=== PATIENT | male | born 1940 | race Caucasian/White ===

== ENCOUNTER 2016-03-15 08:39 | Day surgery (SDC) | payer MEDICARE ==
[~2016-03-15 08:39] MED LIST: ASPI-973 PO; Ampicillin 2,000 mg/50 mL NS Minibag Plus IV ONE; CRES20T PO; DOK; Gentamicin Inj 140 MG in Dextrose 5% 100 ML IV ONE; HYDR-3740 PO; Lactated Ringer's 1,000 ML IV SCH; METO50TA3 PO; NAPR220C11 PO; OXYB5TAB10 PO; TAMS0.4C29 PO
[2016-03-15] MEDS ORDERED: Ondansetron 2 mg/mL 2 mL Inj ONE (08:40)
[2016-03-15] MEDS ORDERED: Propofol 10,000 mCg/mL 20 mL Inj ONE (08:40)
[2016-03-15] MEDS ORDERED: fentaNYL-PF 50 mCg/mL 2 mL Inj ONE (08:40)
[2016-03-15 09:45] VITALS: BP 117/86; PULSE 69; RESP 16; O2SAT 97
[2016-03-15] MEDS: Lactated Ringer's 1,000 ML IV SCH ×2 (09:59→11:08)
[2016-03-15] MEDS ORDERED: Lactated Ringer's 1,000 ML IV SCH (11:29)
[2016-03-15] MEDS ORDERED: Lactated Ringer's 500 ML IV PRN (11:29)
--- NOTE | 2016-03-15 11:29 | PCM.HPANE ---
Patient Data Surgeon Admitting Provider: Attending Provider:Seferino Jay MD Primary Care Physician:Arden Silveira MD Other Provider:Alejandro Broussard Anesthesia Reason for Visit Right Kidney Stone Ht/WT & BMI Body Mass Index Allergies Coded Allergies: iodine (Verified Allergy, Unknown, 03/12/16) lisinopril (Verified Allergy, Unknown, QUESTIONABLE RASH, 08/18/15) morphine (Verified Allergy, Unknown, oral tablets to be coated in applesauce -otherwise vomits, 03/12/16) Uncoded Allergies: BLOOD TRANSFUSION (Allergy, Unknown, QUESTIONABLE RASH, 08/18/15) Past Anesthesia History Anesthesia History: Denies:: Abnormal Airway, Anesthesia Reactions, Difficult Intubation, Fam Anesthesia Reaction Diabetes History Hx Diabetes?: No MRSA MRSA: No Medications Blood Thinner: Aspirin Hypertension Medication: Yes Home Meds Incl Beta Rachele: Yes Reported Medications Tamsulosin ER 0.4 Mg Cap.er.24h0.4 Mg PO DAILY Ref 0 03/12/16 Oxybutynin Chloride 5 Mg Tablet5 Mg PO TID Ref 0 03/12/16 Metoprolol Tartrate 50 Mg [id number] Mg PO BID 30 Days Ref 0 03/12/16 Hydrocodone-Acetaminophen 10-325 mg 1 Each Tablet1 Tablet PO q4-6h PRN For Pain Ref 0 03/12/16 Aspirin 81 Mg [id number] Mg PO DAILY Ref 0 03/12/16 Naproxen Sodium (Aleve)220 Mg Hevyogz303 Mg PO PRN For Pain 03/12/16 [Dok] No Conflict [id number] Mg TID 03/12/16 Rosuvastatin Calcium (Crestor)20 Mg Vnwubu81 Mg PO DAILY 30 Days Ref 0 03/12/16 Discontinued Reported Medications Tamsulosin ER 0.4 Mg Cap.er.24h0.4 Mg PO HS Ref 0 08/17/15 Metoprolol Tartrate 50 Mg Rtoxok29 Mg PO BIDWM 30 Days Ref 0 08/17/15 Rosuvastatin Calcium (Crestor)20 Mg Caqtgb76 Mg PO DAILY 30 Days Ref 0 08/17/15 Aspirin 81 Mg Iwozbn02 Mg PO HS Ref 0 08/17/15 Naproxen Sodium (Aleve)220 Mg Spxgzhz783 Mg PO DAILYWM 08/17/15 History History of ENT Problems?: No HEENT History: Positive for:: Hearing Problem Denies:: Abnormal Airway Cataracts Difficult Intubation Dysphagia Glaucoma Sinus Problem TMJ Hx of Heart Problems?: Yes Cardiovascular History: Positive for:: Cardiac 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) Hypertension Denies:: AICD Chest Pain Congestive Heart Failure Edema Heart Murmur Irregular Heartbeat Pacemaker Hx of Respiratory Problem?: No Respiratory History: Positive for:: Chest Surgery (CABG) Denies:: Asthma Dyspnea Oxygen Administration Pneumonia Tuberculosis Use of C-PAP Machine Use of Inhalers / NEBS Hx Neurologic Problems?: No Neurological History: Denies:: CVA Dizziness Headaches Multiple Sclerosis Parkinson's Disease Seizures TIA Hx of GI Problems?: No Gastrointestinal History: Denies:: Gall Bladder Disease Gastroesphageal Reflux Gastrointestinal Bleeding Heartburn Hepatitis Hiatal Hernia Liver Disease Rectal Bleeding Hx of Problems?: Yes Genitourinary History: Positive for:: Kidney Stones (right kidney stone current admission problem) Other Pertinent History: pt had unsuccessful surgery for this 03/09 at [facility] Male Hx: Denies:: Prostate Problems Scrotal Mass Testicular Surgery Skin History: Denies:: History Skin Disorders? Pressure Ulcers Hx Musculoskeletal Problems?: Yes Musculoskeletal History: Positive for:: Back Injury ("BROKEN BACK" 1974) Joint Replacement (PARTIAL R HIP) Musculoskeletal Trauma (past hx of broken legs- still numbness and tingling ) Hx of Psycho/Social Problems?: No Psycho Social History: Denies:: Anxiety Hx Depression Hx Surgeries?: Yes (CABG; 14 LEG SURGERIES) Hx Any Other Health Problems?: Yes Other History: Positive for:: Hospitalization Denies:: Cancer Thyroid Disease History Blood Transfusions: Positive for:: Accept Blood Products? Blood Transfuse Reaction (broke out in rash) Blood Transfusions Hx Diabetes: No Hx Alcohol Use: NoHx Substance Use: No Smoking Status: Never Smoker Have You Smoked inLast 12 mo: No Stop/Bang Risk Assessment Category Category 1A: Patient has history of documented sleep apnea, and HAS NOT received any narcotic, sedative or anesthesia administration during this stay. Category 1B: Patient has history of documented sleep apnea, and HAS received any narcotic , sedative or anesthesia administration during this stay Category 2: Patient has SUSPECTED Obstructive Sleep Apnea, and HAS received any narcotic , sedative or anesthesia administration during this stay. Category 3: Patient has SUSPECTED Obstructive Sleep Apnea and HAS NOT received narcotic, sedative or anesthesia administration during this stay. Category 4: Outpatient in Procedural Areas with known sleep apnea or who screen positive for High Risk via the STOP/BANG questionnaire. Exam Exam General Appearance: Alert, Oriented X3, Cooperative, No Acute Distress HEENT/AIRWAY: MP 2 Lungs: Clear to Auscultation Heart: Exam Unremarkable Plan Impression Patient chart reviewed, patient interviewed and anesthestic plan with risks, benefits, and alternatives discussed, and informed consent obtained. ASA Physical Status: ASA2 Mod Systemic Disease Anesthetic Plan: GA Bene/Risks/Altern/Consents: Yes HP Complete Prior to Induction: Yes Tre Wagner MD Mar 15, 2016 07:54
[2016-03-15] MEDS ORDERED: Phenylephrine 10,000 mCg/mL Inj IVPUSH PRN (11:30)
[2016-03-15] MEDS ORDERED: Dexamethasone 4 mg/mL Inj IVPUSH PRN (11:30)
[2016-03-15] MEDS ORDERED: HYDROmorphone 1 mg/mL Inj IVPUSH PRN (11:30)
[2016-03-15] MEDS ORDERED: MetoCLOpramide 5 mg/mL 2 mL Inj IVPUSH PRN (11:30)
[2016-03-15] MEDS ORDERED: fentaNYL-PF 50 mCg/mL 2 mL Inj IVPUSH PRN (11:30)
[2016-03-15] MEDS ORDERED: EPHEDrine Sulfate 50 mg/mL Inj IVPUSH PRN (11:30)
[2016-03-15] MEDS ORDERED: Ondansetron 2 mg/mL 2 mL Inj IVPUSH PRN (11:30)
[2016-03-15] MEDS ORDERED: Iopamidol-300 50 mL Inj IV ONE (11:40)
[2016-03-15] MEDS ORDERED: Belladonna Alk-Opium 60 mg Rectal Suppository RECTAL ONE ×2 (11:59→12:03)
[2016-03-15 12:27] VITALS: BP 139/67; PULSE 60; RESP 15; O2SAT 97
[2016-03-15 12:35] VITALS: BP 123/62; PULSE 55; RESP 12; O2SAT 95
[2016-03-15 12:45] VITALS: BP 136/74; PULSE 52; RESP 16; O2SAT 98
--- NOTE | 2016-03-15 12:51 | PCM.SURGPO ---
Immediate Operative Note Date of Surgery: Mar 15, 2016 Pre Operative Diagnosis R renal calculus Post Operative Diagnosis R renal calculus Procedure Cystoscopy, R ureteroscopy, basket extraction of calculus, and R ureteral stent change Surgeon and Contract Administration Specialist Surgeon: Seferino Jay MD Assistants: None Findings R semi-rigid ureteroscopy revealed no calculi in R distal or R mid ureter. A 12 /14F x 35cm ureteral access sheath was placed in R ureter. R flexible ureteroscopy revealed no calculi in R proximal ureter and an approx. 3mm R lower pole renal calculus. Basket extraction of calculus was performed. R ureteral stent was changed. Complications There were no periprocedural complications identified. Surgical Specimen Removed: Yes Specimen sent to Pathology: No Surgical Specimen description: R renal calculus sent to lab for stone analysis Anesthetic Administered: GA Grafts, Implants: Other (26cm x 5F R ureteral JJ stent (no string)) Output, Estimated Blood Loss: <5 Blood Admin during surgery: No Additional information Patient to return to see me in 4-5 days for cystoscopy, stent removal, and post- op visit, with a KUB prior to appt. Seferino Jay MD Mar 15, 2016 12:51
[2016-03-15 12:57] VITALS: BP 134/59; PULSE 51; RESP 16; O2SAT 98
--- NOTE | 2016-03-15 12:58 | PCM.ANEP2 ---
Post Anesthesia Evaluation ASA/CMS Post Anesthesia VS in Patient's Normal Range?: Yes Resp Stable; Airway Patent?: Yes CV Function & Hydration Stable: Yes Mental Status Recovered?: Yes Pain control Satisfactory?: Yes N/V Control Satisfactory?: Yes Tre Wagner MD Mar 15, 2016 12:58
--- NOTE | 2016-03-15 12:58 | PCM.ANEP1 ---
Post Anesthesia Phase 1 PACU Phase 1 Assessment Date of Service: Mar 15, 2016 Vital Signs Vital Signs Date Time Temp Pulse Resp B/P Pulse Ox O2 Delivery O2 Flow Rate FiO2 03/15/16 12:45 52 16 136/74 98 Room Air 03/15/16 12:35 55 12 123/62 95 Room Air 03/15/16 12:27 36.3 60 15 139/67 97 Room Air 03/15/16 09:45 36.4 69 16 117/86 97 Room Air Anesthetic Administered: GA Level of Alertness: Awake, talking HERNDON's with Equal Strength: Yes Pain: No Nausea or Vomiting: No Oxygen Delivery: Room Air Lungs: Clear to Auscultation Dermatome Level: Full Sensation Tre Wagner MD Mar 15, 2016 12:58
--- NOTE | 2016-03-15 13:01 | PCM.DISURG ---
Surgical Discharge Instruction Date of Service Mar 15, 2016 Dates of Hospitalization Date of Hospital Admission Mar 15, 2016 Providers Admitting Physician: Seferino Jay MD Primary Care Physician: Arden Silveira MD Attending Physician: Seferino Jay MD Discharge Diagnosis Discharge Diagnosis R renal calculus Post Operative diagnosis R renal calculus Diet Discharge Diet: No restrictions, Other (Drink 10-12 8oz. glasses (3 liters) of fluids per day) Activity Discharge Activity-General: No restrictions, No driving while taking narcotic Dressing and Incisional Care Hygiene: May shower Follow Up Plan Follow-up Provider (F9): Seferino Jay MD Follow-up appointment: Days (4-5 days for cystoscopy, stent removal, and post- op visit, with a KUB prior to appt.) Call your provider for: Fever, Chills, Vomiting, Other (Pain uncontrolled by pain medications) Seferino Jay MD Mar 15, 2016 13:01
[2016-03-15 13:02] VITALS: BP 120/62; PULSE 51; RESP 16; O2SAT 100
--- NOTE | 2016-03-15 14:28 | DRSVH ---
PROCEDURE: X-RAY RETROGRADE UROGRAPHY INDICATIONS: RIGHT STENT PLACEMENT TECHNIQUE: 4 intra-operative images acquired by the Urology service. COMPARISON: Outside Film, CT, CT ABD PELVIS WO CON, 01/14/2016, 8:58. FINDINGS: Mild right hydronephrosis is present. No intraluminal filling defects seen. Visualized p ortions of the proximal ureter are grossly normal. Ureteral stent placed. IMPRESSION: Mild right hydronephrosis and placement of ureteral stent. Dictated by: Darin Sigala [facility] Interpreted: Minal Gustafson MD on 03/15/2016 at 14:26 Transcribed by: [place] on 03/15/2016 at 14:27 Approved by: Minal Gustafson MD, PhD on 03/15/2016 at 16:32
--- NOTE | 2016-03-15 20:16 | OP ---
[address] [address] OPERATIVE REPORT PATIENT: CRISTIAN BELTRAN : 1940 MR#: [id number] ADMIT: 03/15/2016 JOB ID: [id number] DATE OF SURGERY: 03/15/2016 PREOPERATIVE DIAGNOSIS(ES): Right renal calculus. POSTOPERATIVE DIAGNOSIS(ES): Right renal calculus. PROCEDURE: Cystoscopy, right ureteroscopy, basket extraction of calculus, and right ureteral stent change. SURGEON: Seferino Jay MD. ENERGY RATER: None. ANESTHESIA: General. ESTIMATED BLOOD LOSS: Less than 5 mL. SPECIMENS: Right renal calculus, sent to the lab for stone analysis. DRAINS: A 26 cm x 5-Cambodian right ureteral double-J stent. COMPLICATIONS: None. CONDITION: Stable. FINDINGS: Right semi-rigid ureteroscopy revealed no calculi in the right distal or right mid ureter. A 12/14-Cambodian by 35 cm ureteral access sheath was placed in the right ureter. Right flexible ureteroscopy revealed no calculi in the right proximal ureter and an approximately 3 mm right lower pole renal calculus. Basket extraction of calculus was performed. Right ureteral stent was changed. INDICATIONS: The patient is a 75-year-old male with a right lower pole renal calculus seen on CT scan. The patient is status post cystoscopy, right ureteroscopy, and right ureteral stent placement on March 09, 2016 for right renal calculus and gross hematuria, with intraoperative findings of cystoscopy showing trilobar prostatic hypertrophy with prostatic varices with bleeding seen after passage of the cystoscope in the bladder, moderately trabeculated bladder and no bladder tumors, lesions, or calculi, with right flexible ureteroscopy showing a 3 mm right lower pole renal calculus which was difficult to visualize and unable to be extracted using a basket (secondary to location of calculus within a right lower pole calyx with acute angle and inadequate deflection of the flexible ureteroscope). This surgery was done at [facility]. The patient now presents for surgery, specifically cystoscopy, right ureteroscopy, possible basket extraction of calculus, possible holmium laser lithotripsy, and right ureteral stent change. Will perform surgery using a flexible ureteroscope with thinner diameter and better deflection. DESCRIPTION OF PROCEDURE: The patient was brought into the operating room and placed supine on the operating room table. The patient was given ampicillin and gentamicin IV antibiotics. Sequential compression device boots were placed. General anesthesia was administered. The patient was brought down into dorsal lithotomy position. The patient was prepped and draped in standard surgical fashion. A 22-Cambodian rigid cystoscope was placed into the distal urethra without difficulty. Cystoscopy revealed normal distal urethra, trilobar prostatic hypertrophy with prostatic varices, moderately trabeculated bladder, and no bladder tumors, lesions, or calculi. The distal end of the right ureteral stent was seen emerging from the right ureteral orifice. The distal end of the stent was grasped with a cystoscopic grasper and brought out to the urethral meatus. A straight tip Ultratrack guidewire was passed through the stent, up the right ureter, into the right renal pelvis. The old stent was removed and discarded in its entirety. The guidewire was secured to the drape with a Alise clamp as a safety wire. A semi-rigid ureteroscope was passed through the urethra and bladder, and into the right ureteral orifice with the assistance of a PTFE guidewire. Right semi-rigid ureteroscopy revealed no calculi in the right distal or right mid ureter. The PTFE guidewire was advanced up the right ureter into the right renal pelvis. The semi-rigid ureteroscope was then removed from the patient. A 12/14-Cambodian x 35 cm ureteral access sheath was passed over the PTFE guidewire, through the urethra and bladder, up the right ureter, into the right mid ureter. The inner portion of the sheath and PTFE guidewire were removed. A flexible ureteroscope, which was a Flex-X Storz flexible ureteroscope, was passed through the ureteral access sheath into the right mid ureter. Right flexible ureteroscopy revealed no calculi in the right proximal ureter. Then, the right renal pelvis and all calyces were visualized. An approximately 3 mm calculus was seen in a right lower pole calyx. The calculus was able to be extracted using a 2.4-Cambodian N-[place] nitinol basket and the calculus was sent to the lab for stone analysis. The right renal pelvis and all calyces were visualized. No significant 1 mm or larger calculi were seen. A small amount of contrast was instilled into the right renal collecting system to illuminate the right renal collecting system to aid in stent placement. The flexible ureteroscope and ureteral access sheath were backed down the right ureter. The entire right ureter was visualized to have no calculi. The flexible ureteroscope and ureteral access sheath were removed from the patient. The rigid cystoscope was passed over the safety guidewire, through the urethra, and into the bladder. A 26 cm x 5-Cambodian ureteral double-J stent, with the stent string removed prior to stent placement, was passed over the guidewire through the cystoscope and passed up the right ureter and placed so that the proximal pigtail was located in the right renal pelvis and the distal pigtail was located in the bladder. The guidewire was removed. Correct positioning of the stent was confirmed both fluoroscopically and under direct visualization using the cystoscope. Good efflux of contrast could be seen draining through the distal end of the stent into the bladder, further confirming correct stent positioning. Thus, the right ureteral stent was changed to a new stent, and basket extraction of the right lower pole renal calculus was able to be performed. The bladder was drained via the cystoscope. The cystoscope was removed from the patient. The skin was cleaned and dried. The patient was placed in supine position. The patient was awakened from general anesthesia and transferred to the recovery room in stable condition. The patient tolerated the procedure well. The plan is for the patient to be discharged home when stable and for the patient to return to see me in the office in 4-5 days for cystoscopy, stent removal, and postoperative visit, with a KUB prior to the appointment. NATO
[2016-03-22 06:12] LABS: Stone Color Brown (.)
== END 2016-03-15 23:59 | disposition home or self-care (01) ==
LOC: SAS 08:39
PROVIDERS: ATTEND Urology
DX: N20.0 Calculus of kidney (principal); N40.0 Benign prostatic hyperplasia without lower urinary tract symptoms; I10 Essential (primary) hypertension; G47.30 Sleep apnea, unspecified
CPT/HCPCS: 52352; 74420; 82360; C2617; J0290; J1580; J2405; J3010; J7120; Q9967